=== PATIENT | male | born 1985 | race Caucasian/White ===

== ENCOUNTER 2016-07-09 11:32 | Inpatient (IN) ==
[2016-07-09] MEDS ORDERED: SODIUM CHLORIDE 1,000 ML IV STA ×2 (11:44→11:45)
[2016-07-09] MEDS ORDERED: ZOFRAN 4 MG/2 ML IVP STA (11:45)
[2016-07-09 11:46] VITALS: BMI 26.4
--- NOTE | 2016-07-09 12:29 | DI ---
EXAM: CHEST FRONTAL AND LATERAL VIEWS HISTORY: Cough. COMPARISON: None FINDINGS: Heart size and mediastinal contour within normal limits. No acute infiltrates. Zarina l vascularity with no pleural fluid or pneumothorax. The bony thorax has no acute finding. IMPRESSION: No acute process.
[2016-07-09 12:38] LABS: BASOPHILS # (AUTO) 0.1 K/uL (0-0.2); BASOPHILS % (AUTO) 0.5 % (0.0-3.0); EOSINOPHILS # (AUTO) 0.6 K/ul (0.0-0.7); HEMATOCRIT 57.9 % (42.0-52.0); HEMOGLOBIN 19.5 g/dl (14.0-18.0); IMMATURE GRANULOCYTE % (AUTO) 0.3 % (0.0-5.0); LYMPHOCYTES # (AUTO) 1.4 K/uL (0.60-3.4); LYMPHOCYTES % (AUTO) 9.3 (10.0-50.0); MEAN CORPUSCULAR HEMOGLOBIN 29.8 pg (27.0-31.0); MEAN CORPUSCULAR HGB CONC 33.7 (31.8-35.4); MEAN CORPUSCULAR VOLUME 88.4 fl (80.0-94.0); MONOCYTES # (AUTO) 0.6 K/uL (0.4-2.0); MONOCYTES % (AUTO) 4.2 (0-10); NEUTROPHILS # (AUTO) 11.9 K/ul (2.0-6.9); NEUTROPHILS % (AUTO) 81.7; PLATELET COUNT 355 10^3/uL (140-440); RED BLOOD COUNT 6.55 10^6/ul (4.70-6.10); WHITE BLOOD COUNT 14.56 K/ul (4.2-10.2)
[2016-07-09 12:44] LABS: ALBUMIN 5.7 g/dL (3.4-5.0); ALBUMIN/GLOBULIN RATIO 1.16; ANION GAP 16.7; BILIRUBIN,TOTAL 1.35 mg/dL (0.00-1.20); BUN/CREATININE RATIO 10.32; CALCIUM 11.2 mg/dL (8.2-10.2); CREATININE 2.13 mg/dL (0.60-1.10); POTASSIUM 4.7 mmol/L (3.5-5.1); TOTAL PROTEIN 10.6 g/dL (6.4-8.2)
[2016-07-09 12:56] LABS: FLU INTERNAL QC INTERNAL QC VALID; RAPID FLU A NEGATIVE (NEGATIVE); RAPID FLU B NEGATIVE (NEGATIVE)
--- NOTE | 2016-07-09 14:23 | ED.PDOC ---
General ED Provider: Dr. ADRIANA CARIAS Chief Complaint: Nausea/Vomiting Stated Complaint: N/V/D Time Seen by Physician: 11:35 (STARTED 8 PM LAST NIGHT) Mode of Arrival: Wheelchair Information Source: Patient Exam Limitations: No limitations Nursing and Triage Documentation Reviewed and Agree: Yes GI Complaint Exam - Vomiting/Diarrhea Complaint/Exam Onset/Duration: LAST NIGHT Symptoms Are: Resolved Episodes of Vomiting over last 24 Hours: 10 Episodes of Diarrhea Over Last 24 Hours: 17 Initial Severity: Moderate Current Severity: Moderate Character of Vomiting: Reports: Non-bilious Aggravating: Reports: None Alleviating: Reports: None Associated Signs and Symptoms: Reports: Abdominal pain Non-GI Risk Factors: Reports: None Surgical Obstruction Risk Factors: Reports: None Related Surgical History: Reports: None Abdominal Findings: Present: None Differential Diagnoses: Gastritis Review of Systems - Review Of Systems Constitutional: Reports: No symptoms Eyes: Reports: No symptoms Ears, Nose, Mouth, Throat: Reports: No symptoms Respiratory: Reports: No symptoms Cardiac: Reports: No symptoms GI: Reports: Abdominal pain, Diarrhea, Nausea, Vomiting : Reports: No symptoms Musculoskeletal: Reports: No symptoms Skin: Reports: No symptoms Neurological: Reports: No symptoms Endocrine: Reports: No symptoms Hematologic/Lymphatic: Reports: No symptoms All Other Systems: Reviewed and Negative Past Medical History - Past Medical History Previously Healthy: Yes Endocrine: Reports: None Cardiovascular: Reports: None Respiratory: Reports: None Hematological: Reports: None Gastrointestinal: Reports: None Genitourinary: Reports: None Neuro/Psych: Reports: None Musculoskeletal: Reports: None Cancer: Reports: None - Surgical History General Surgical History: Reports: None - Family History Family History: Reports: None - Social History Smoking Status: Current some day smoker, Light tobacco smoker Hx Substance Use: No Alcohol Screening: Occasionally Physical Exam - Physical Exam Appearance: Well-appearing, No pain distress, Well-nourished Eyes: ZAKIA, EOMI, Conjunctiva clear ENT: Dry mucosa Respiratory: Airway patent, Breath sounds clear, Breath sounds equal, Respirations nonlabored Cardiovascular: RRR, Pulses normal, No rub, No murmur GI/: Soft, Nontender, No masses, Bowel sounds normal, No Organomegaly Musculoskeletal: Normal strength, ROM intact, No edema, No calf tenderness Skin: Warm, Dry, Normal color Neurological: Sensation intact, Motor intact, Reflexes intact, Cranial nerves intact, Alert, Oriented Psychiatric: Affect appropriate, Mood appropriate Physician Notification - Case Discussed Physician Notified: JHONY Time of Notification: 14:24 (ADMITT) Admit To: Inpatient Critical Care Note - Critical Care Note Total Time (mins): 0 Course - Course Hematology/Chemistry: 07/09/16 12:00 07/09/16 12:00 Orders, Labs, Meds: Lab Review 07/09/16 12:00 WBC 14.56 H RBC 6.55 H Hgb 19.5 H Hct 57.9 H MCV 88.4 MCH 29.8 MCHC 33.7 RDW Coeff of Aaron 13.2 Plt Count 355 Immature Gran % (Auto) 0.3 Neut % (Auto) 81.7 Lymph % (Auto) 9.3 L Collin % (Auto) 4.2 Eos % (Auto) 4.0 Baso % (Auto) 0.5 Immature Gran # (Auto) 0.1 Neut # 11.9 H Lymph # 1.4 Collin # 0.6 Eos # 0.6 Baso # 0.1 Sodium 135 L Potassium 4.7 Chloride 104 Carbon Dioxide 19 L Anion Gap 16.7 BUN 22 H Creatinine 2.13 H Estimated GFR (MDRD) 37.00 BUN/Creatinine Ratio 10.32 Glucose 164 H Lactic Acid 12.8 Calcium 11.2 H Total Bilirubin 1.35 H AST 33 ALT 45 Alkaline Phosphatase 106 Total Protein 10.6 H Albumin 5.7 H Globulin 4.9 Albumin/Globulin Ratio 1.16 Influenza A (Rapid) Negative Influenza B (Rapid) Negative Orders Category Date Time Status ED IV/MEDIPORT/POWERPORT .ONCE EMERGENCY 07/09/16 11:44 Active BLOOD CULTURE Stat LAB 07/09/16 12:00 Received CBC W/ AUTO DIFF Stat LAB 07/09/16 12:00 Completed COMPREHENSIVE METABOLIC PANEL Stat LAB 07/09/16 12:00 Completed LACTIC ACID Stat LAB 07/09/16 12:00 Completed MOLECULAR GROUP A STREP Stat LAB 07/09/16 12:00 Results RAPID FLU A/B Stat LAB 07/09/16 12:00 Completed STREP SCREEN Stat LAB 07/09/16 12:00 Results URINALYSIS C & S IF INDICATED Stat LAB 07/09/16 11:43 Uncollected 0.9 % Sodium Chloride [Saline Flush] MEDS 07/09/16 11:43 Active 1 syr IVF PRN PRN Ondansetron HCl/Pf [Zofran 4 mg/2 ml] MEDS 07/09/16 11:45 Discontinued 4 mg IVP ONCE STA Sodium Chloride 0.9% [Sodium Chloride] 1,000 ml MEDS 07/09/16 11:44 Discontinued IV BOLUS Sodium Chloride 0.9% [Sodium Chloride] 1,000 ml MEDS 07/09/16 11:45 Discontinued IV BOLUS CHEST, 2 VIEWS PA & LAT Stat RADS 07/09/16 11:[address] ABDOMEN/PELVIS WO CONTRAST Stat RADS 07/09/16 13:12 Ordered Medications Generic Name Dose Route Start Last Admin Trade Name Freq PRN Reason Stop Dose Admin Sodium Chloride 1 syr 07/09/16 11:43 Saline Flush IVF PRN PRN To flush IV Discontinued Medications Generic Name Dose Route Start Last Admin Trade Name Freq PRN Reason Stop Dose Admin Sodium Chloride 1,000 mls @ 1,000 mls/hr 07/09/16 11:44 07/09/16 12:06 Sodium Chloride IV 07/09/16 12:43 1,000 mls/hr BOLUS STA Administration Sodium Chloride 1,000 mls @ 1,000 mls/hr 07/09/16 11:45 07/09/16 13:39 Sodium Chloride IV 07/09/16 12:44 Not Given BOLUS STA Ondansetron HCl 4 mg 07/09/16 11:45 07/09/16 12:06 Zofran 4 Mg/2 Ml IVP 07/09/16 11:46 4 mg ONCE STA Administration Vital Signs: Temp Pulse Resp BP Pulse Ox 07/09/16 11:35 96.1 F L 115 H 20 121/84 98 Departure - Departure Time of Disposition: 14:24 Disposition: ADMITTED INPATIENT Discharge Problem: Nausea, Vomiting, Acute gastroenteritis Instructions: Acute Diarrhea (ED) Condition: Good Pt referred to PMD for follow-up: No Additional Instructions: Please call your Family Physician as soon as possible to schedule a follow-up appointment. Allergies/Adverse Reactions: Allergies No Known Allergies Allergy (Unverified 07/09/16 11:43) Home Medications: Ambulatory Orders Lisinopril 10 mg PO DAILY 07/09/16 Disposition Discussed With: Patient, Family
[2016-07-09] MEDS ORDERED: ZOFRAN 4 MG/2 ML IVP PRN (15:24)
--- NOTE | 2016-07-09 15:33 | CT ---
EXAM: CT Abdomen without contrast. CT Pelvis without contrast. HISTORY: Generalized abdominal pain. COMPARISON: None available. TECHNIQUE: Multiple axial images of the abdomen and pelvis were obtained without intravenous contra st. Images were reformatted in the coronal plane. FINDINGS: Please note that evaluation of the abdominal and pelvic structures is limited due to lack of intravenous contrast. The lung bases are clear. No acute osseous abnormality identified. The liver, gallbladder, pancreas, spleen, adrenal glands, and kidneys demonstrate normal contour. N o calcified renal stones or hydronephrosis detected. The bowel is normal in course and caliber without evidence for obstruction or inflammatory process. The appendix is normal. A few diverticula present in the colon. No free fluid or free air detecte d. Urinary bladder is not well distended. Phleboliths in the pelvis. IMPRESSION: No acute abnormality within the abdomen or pelvis.
[2016-07-09] MEDS: SODIUM CHLORIDE 1,000 ML IV SCH (16:10)
[2016-07-09 21:05] LABS: KETONES,URINE NEGATIVE (NEGATIVE); PROTEIN,URINE NEGATIVE (NEGATIVE)
[2016-07-09 21:06] LABS: ADD URINE MICROSCOPIC YES; BILIRUBIN,URINE NEGATIVE (NEGATIVE); LEUKOCYTE ESTERASE ,URINE NEGATIVE (NEGATIVE); NITRITE,URINE NEGATIVE (NEGATIVE); PH,URINE 5.5 (5-9); URINE, BLOOD 1+ (NEGATIVE)
[2016-07-09 21:26] LABS: COCAIN SCREEN,URINE NEGATIVE (NEGATIVE)
[2016-07-09] MEDS: PROTONIX IV IVP SCH (21:26)
[2016-07-09 21:33] LABS: TROPONIN I 0.016 ng/ml (0.0000-0.4000)
[2016-07-09 21:40] LABS: CREATINE KINASE MB 7.1 ng/ml (0.0-3.6)
[2016-07-09] MEDS ORDERED: CLONAZEPAM 2 MG PO SCH (22:00)
[2016-07-09] MEDS ORDERED: KLONOPIN ONE (22:15)
[2016-07-09] MEDS: NEURONTIN PO SCH (22:18)
[2016-07-10] MEDS: SODIUM CHLORIDE 1,000 ML IV SCH ×2 (01:40→09:57)
[2016-07-10 05:08] LABS: BASOPHILS % (AUTO) 0.5 % (0.0-3.0); EOSINOPHILS # (AUTO) 0.9 K/ul (0.0-0.7); EOSINOPHILS % (AUTO) 10.6 % (0.0-7.0); HEMATOCRIT 41.9 % (42.0-52.0); HEMOGLOBIN 14.2 g/dl (14.0-18.0); IMMATURE GRANULOCYTE % (AUTO) 0.2 % (0.0-5.0); LYMPHOCYTES # (AUTO) 2.8 K/uL (0.60-3.4); LYMPHOCYTES % (AUTO) 33.2 (10.0-50.0); MEAN CORPUSCULAR HEMOGLOBIN 30.1 pg (27.0-31.0); MEAN CORPUSCULAR HGB CONC 33.9 (31.8-35.4); MEAN CORPUSCULAR VOLUME 88.8 fl (80.0-94.0); MONOCYTES # (AUTO) 0.6 K/uL (0.4-2.0); MONOCYTES % (AUTO) 6.4 (0-10); NEUTROPHILS # (AUTO) 4.2 K/ul (2.0-6.9); NEUTROPHILS % (AUTO) 49.1; PLATELET COUNT 217 10^3/uL (140-440); RED BLOOD COUNT 4.72 10^6/ul (4.70-6.10); WHITE BLOOD COUNT 8.55 K/ul (4.2-10.2)
[2016-07-10 05:21] LABS: ALBUMIN 3.6 g/dL (3.4-5.0); ALBUMIN/GLOBULIN RATIO 1.24; ANION GAP 12.7; BILIRUBIN,TOTAL 1.18 mg/dL (0.00-1.20); BUN/CREATININE RATIO 15.62; CALCIUM 8.6 mg/dL (8.2-10.2); CREATININE 0.96 mg/dL (0.60-1.10); POTASSIUM 3.7 mmol/L (3.5-5.1); TOTAL PROTEIN 6.5 g/dL (6.4-8.2)
[2016-07-10 05:47] LABS: TROPONIN I 0.021 ng/ml (0.0000-0.4000)
[2016-07-10 06:28] LABS: CREATINE KINASE MB 6.9 ng/ml (0.0-3.6)
[2016-07-10] MEDS: NEURONTIN PO SCH ×2 (08:21→21:13)
[2016-07-10] MEDS: ZESTRIL PO SCH (08:21)
[2016-07-10] MEDS: XANAX PO SCH (08:21)
[2016-07-10] MEDS: PROTONIX IV IVP SCH ×2 (09:57→21:14)
[2016-07-10] MEDS: NON-FORMULARY MEDICATION (Buprenorphine Hcl/Naloxone Hcl [Suboxone 8 Mg-2 Mg Sl Film] 1 EA SL SCH (10:13)
[2016-07-10 13:40] LABS: CREATINE KINASE MB 7.4 ng/ml (0.0-3.6)
[2016-07-10] MEDS ORDERED: KLONOPIN PO SCH (21:00)
[2016-07-11] MEDS: SODIUM CHLORIDE 1,000 ML IV SCH ×2 (00:11→04:47)
[2016-07-11 04:56] LABS: BASOPHILS % (AUTO) 0.4 % (0.0-3.0); EOSINOPHILS # (AUTO) 0.7 K/ul (0.0-0.7); EOSINOPHILS % (AUTO) 9.6 % (0.0-7.0); HEMATOCRIT 41.6 % (42.0-52.0); HEMOGLOBIN 13.8 g/dl (14.0-18.0); IMMATURE GRANULOCYTE % (AUTO) 0.1 % (0.0-5.0); LYMPHOCYTES # (AUTO) 2.6 K/uL (0.60-3.4); MEAN CORPUSCULAR HEMOGLOBIN 29.7 pg (27.0-31.0); MEAN CORPUSCULAR HGB CONC 33.2 (31.8-35.4); MEAN CORPUSCULAR VOLUME 89.5 fl (80.0-94.0); MONOCYTES # (AUTO) 0.7 K/uL (0.4-2.0); MONOCYTES % (AUTO) 9.7 (0-10); NEUTROPHILS # (AUTO) 3.5 K/ul (2.0-6.9); NEUTROPHILS % (AUTO) 46.2; PLATELET COUNT 233 10^3/uL (140-440); RED BLOOD COUNT 4.65 10^6/ul (4.70-6.10); WHITE BLOOD COUNT 7.62 K/ul (4.2-10.2)
[2016-07-11 05:16] LABS: ALBUMIN 3.7 g/dL (3.4-5.0); ALBUMIN/GLOBULIN RATIO 1.23; ANION GAP 10.7; BILIRUBIN,TOTAL 0.7 mg/dL (0.00-1.20); BUN/CREATININE RATIO 13.63; CALCIUM 9.3 mg/dL (8.2-10.2); CREATININE 0.88 mg/dL (0.60-1.10); POTASSIUM 3.7 mmol/L (3.5-5.1); TOTAL PROTEIN 6.7 g/dL (6.4-8.2)
[2016-07-11] MEDS: ZESTRIL PO SCH (08:16)
[2016-07-11] MEDS: XANAX PO SCH (08:16)
[2016-07-11] MEDS: NEURONTIN PO SCH (08:16)
[2016-07-11] MEDS: NON-FORMULARY MEDICATION (Buprenorphine Hcl/Naloxone Hcl [Suboxone 8 Mg-2 Mg Sl Film] 1 EA SL SCH (08:18)
[2016-07-11] MEDS: PROTONIX IV IVP SCH (08:32)
[2016-07-11 13:58] VITALS: BP 111/65; TEMP 98.1
[2016-07-11] MEDS ORDERED: IMODIUM PO PRN (14:14)
[2016-07-11] MEDS ORDERED: IMODIUM ONE (14:32)
--- NOTE | 2016-07-12 11:44 | DS ---
DATE OF SERVICE: 07/11/16 FINAL DIAGNOSIS: 1. Acute gastroenteritis most likely from viral 2. Substance use amphetamine and methamphetamine 3. Chronic Methadone use 4. Hypertension 5. Dyslipidemia 6. Anxiety 7. Nicotine use. 8. Early Rhabdomyolysis DISCHARGE INSTRUCTIONS: Discharge the patient home. Imodium 2mg PO three times day PRN. Increase hydration. Continue home medications. MEDICATIONS AT DISCHARGE: Xanax Buprenorphine Clonazepam Gabapentin Lisinopril Imodium Lisinopril NEW PRESCRIPTIONS: Imodium 2mg PO three times a day PRN DIET INSTRUCTIONS: High fiber diet ACTIVITY: As much as tolerated SMOKING: Current some day smoker. Light tobacco smoker. DISEASE SPECIFIC EDUCATION: Dehydration Drug use been discussed and verbalized understanding. Promised not to use anymore drugs. HOSPITAL COURSE: Bran Arredondo who came to the emergency room was admitted to the hospital from the emergency room on Tuesday for acute gastroenteritis and acute renal failure. Initial BUN was 22, creatinine 2.14 and WBC was 14,000. He was started on the IV fluids, Zofran was given and his home medications were continued. With the given treatment the vomiting was subsided and the patient was started on the clear liquid diet and advanced as tolerated. He did tolerate it good with no vomiting. The patient still had some diarrhea otherwise kidney numbers are better. WBC is normal. No fever and up and about without any complications. As patient was doing better and did not have any problems, no fever, no chills and diarrhea is improved the patient was planned to be discharged home with medication Imodium 2mg three times a day and advised to take any drugs. He verbalized understanding and promised not to do anymore. TIME SPENT: More than 45 minutes. [facility]
--- NOTE | 2016-07-12 11:53 | PN ---
DATE OF SERVICE: 07/10/16 SUBJECTIVE: The patient was admitted with the acute gastroenteritis and acute renal failure. The patient is lying the bed and not in any distress. The patient's mother is in the room. He is feeling some better, still having diarrhea with no nausea and vomiting and tolerating the clear liquid diet. BUN, creatinine and the renal functions are improved. REVIEW OF SYSTEMS: CONSTITUTIONAL: No fever, no chills. HEENT: Normal. ENDOCRINE: No weight gain, no weight loss. CVS: No angina symptoms. No CHF symptoms. No palpitations. No atypical chest pain for CAD. No shortness of breath. No PND, no orthopnea. RESPIRATORY: No cough, no hemoptysis. GI: No nausea, no vomiting. No abdominal pain. : No hematuria. No polyuria. MUSCULOSKELETAL:. No joint swelling. PSYCHIATRIC: Not anxious. No depression. No suicidal thoughts. No homicidal thoughts. SKIN: Intact. No rash. PHYSICAL EXAMINATION: V/S: blood pressure 102/63, respiratory rate 20, heart rate 58 and temperature 97.8 GENERAL: Still has weakness and tiredness. HEENT: Normocephalic, atraumatic. Ears, eyes, nose and throat normal. Mucosa dry. NECK: Supple. No JVD, no carotid bruit. No lymphadenopathy. LUNGS: Decreased and clear to auscultation. No rales or rhonchi. HEART: S1, S2 normal. No S3. No murmur, gallop or regurgitation. ABDOMEN: Soft, nontender. Bowel sounds active. No rigidity. No rebound or guarding. No CVA tenderness. EXTREMITIES: No clubbing, cyanosis or pedal edema. MUSCULOSKELETAL: No joint swelling. NEUROLOGIC: Awake, alert, oriented times three. No focal deficit. LYMPHATIC: No lymph nodes palpable. SKIN: Intact. LABS: WBC 8.55, hgb 14.2, hct 41.9, plt count 217, sodium 139, potassium 3.7, chloride 108, bicarb 22, BUN 15 and creatinine 0.96. CK-MB 6.9. ASSESSMENT: 1. Acute gastroenteritis, better 2. Acute renal failure, resolved 3. Dehydration, better 4. Hypertension 5. Peripheral neuropathy 6. Anxiety PLAN: 1. Regular diet 2. Will decrease IV fluids to the 70ml per hour 3. Out of bed to chair Will follow the patient in daily rounds. TIME SPENT: More than 30 minutes MTDRene
--- NOTE | 2016-07-12 13:49 | HP ---
DATE OF SERVICE: 07/09/16 REASON FOR HOSPITALIZATION: Nausea, vomiting and diarrhea. HISTORY OF PRESENT ILLNESS: The patient is a 30 year old male who is a healthy diony came to the emergency room with one day onset of nausea, vomiting and diarrhea almost 15-20 times. Vomit consists of food material and water non-bile. Diarrhea is watery, swelling and cramps in the belly and not able to keep anything down. He came to the emergency room and was seen by Dr. Schultz in the emergency room. Initial white count was 14,000 and BUN and creatinine was high, BUN 22 and creatinine was 2.13. Serology influenza was negative but the toxicology was positive for amphetamine, methamphetamine and benzodiazepine and cannabis. CT of abdomen and pelvis was also done which did not reveal much, no acute findings. Meanwhile Dr. Schultz gave him almost two liters of fluids but still was feeling weak and tired and nauseous. At that time the patient was admitted for the IV fluids and intractable nausea and vomiting and questionable LV rhabdomyolysis and drug toxicity. REVIEW OF SYSTEMS: CONSTITUTIONAL: No night sweats. Weakness and tiredness. No fever or chills. HEENT: Eyes: No visual changes. No eye pain. No eye discharge. ENT: No runny nose. No epistaxis. No sinus pain. No sore throat. No odynophagia. No ear pain. No congestion. RESPIRATORY: No cough, no congestion. No hemoptysis. CARDIOVASCULAR: No angina symptoms. No CHF symptoms. No atypical chest pain for CAD. No palpitations. No shortness of breath. GASTROINTESTINAL: Abdominal cramps. Nausea and vomiting. No diarrhea or constipation. No hematemesis. No hematochezia. GENITOURINARY: No urgency. No frequency. No dysuria. No hematuria. No obstructive symptoms. No discharge. No pain. No significant abnormal bleeding. MUSCULOSKELETAL: No musculoskeletal pain. No joint swelling. No arthritis. NEUROLOGICAL: No headache. No neck pain. No syncope. No seizures. No dizziness. PSYCHIATRIC: Not anxious. No depression. No suicidal thoughts. No homicidal thoughts. SKIN: No rash. No lesions. No wounds. ENDOCRINE: No unexplained weight loss. No weight gain. HEMATOLOGIC/LYMPHATIC: No anemia. No purpura. No petechiae. No prolonged or excessive bleeding. No palpable lymph nodes. PERSONAL/FAMILY/SOCIAL HISTORY: The patient does not drink. Does not admit about the recreational drugs. Does smoke. The family history is not significant. PAST MEDICAL/SURGICAL PROBLEMS: Dyslipidemia Hypertension Anxiety Peripheral neuropathy History of drug use, Suboxone MEDICATIONS: Lisinopril Neurontin Clonazepam Suboxone Xanax ALLERGIES: No known allergies. PHYSICAL EXAMINATION: VITAL SIGNS: Blood pressure 1221/84, respiratory rate is 20, heart rate 115 and temperature 96.1. GENERAL: Sick looking boy. Sitting in the bed. HEENT: Head normocephalic, atraumatic. Eyes: Extraocular muscles are intact. Pupils are equal, round and reactive to light and accommodation. Ears: No lesions. Nose appeared normal. Throat: No exudate or erythema. Mucosa dry. NECK: Supple. No JVD, no carotid bruit. No lymphadenopathy or thyromegaly. LUNGS: Bilateral entry is decreased and clear to auscultation. Percussion note normal. Chest symmetrical. HEART: S1, S2, no S3. No murmurs. No cyanosis or clubbing. No ascites. Pulses: Dorsalis pedis and posterior tibial pulses +1 to +2 both sides. ABDOMEN: Soft. Discomfort all over. Bowel sounds active. No CVA tenderness. No mass felt. EXTREMITIES: No edema. Full range of motion of all extremities, equal. NEUROLOGIC: No focal deficit. Cranial nerves II through XII are grossly intact. No headache, no double vision or headache. SKIN: Not dry. Intact. Turgor - normal. LYMPHATIC: No palpable lymph nodes/no lymphedema. MUSCULOSKELETAL: Normal joints with no swelling. Muscle tone is normal. LABS: WBC 14.56, hgb 19.5, hct 57.9, plt count 355, sodium 135, potassium 4.7, chloride 104, bicarb 19, BUN 22, creatinine 2.13, glucose 164, calcium 11.5 and CK-MB 7.1. Drug screen is positive for the amphetamine, methamphetamine and benzo. Influenza negative. Urine positive for the 1+ blood. ASSESSMENT: 1. Acute gastroenteritis 2. Acute renal failure 3. Dehydration 4. Recreational drugs 5. History of hypertension 6. Anxiety disorder PLAN: 1. Admit patient to the regular floor 2. IV fluids at 125ml per hour 3. Continue home medications 4. Zofran Q 6 hour PRN 5. Continue the rest of the home medications Will follow the patient in daily rounds. TIME SPENT: More than 65 minutes. CHELLE
== END 2016-07-11 15:20 | disposition home or self-care (01) | DRG 392 ==
LOC: ED 11:32 → MEDSURG B 14:42 → EDBD 14:42
PROVIDERS: ADMIT Emergency Medicine; ATTEND Emergency Medicine
DX: A08.4 Viral intestinal infection, unspecified (principal); N17.9 Acute kidney failure, unspecified; M62.82 Rhabdomyolysis; F11.20 Opioid dependence, uncomplicated; F12.90 Cannabis use, unspecified, uncomplicated; F15.90 Other stimulant use, unspecified, uncomplicated; F19.90 Other psychoactive substance use, unspecified, uncomplicated; E86.0 Dehydration; I10 Essential (primary) hypertension; G62.9 Polyneuropathy, unspecified; F41.9 Anxiety disorder, unspecified; Z72.0 Tobacco use; Z79.899 Other long term (current) drug therapy
CPT/HCPCS: 36415; 80053; 80306; 81001; 82550; 82553; 83605; 84484; 85025; 87040; 87651; 87804; 87880; 93005; 93010; 96361; 96374; 99223; 99233; 99239; 99284